=== PATIENT | male | born 1985 | race Two or more races ===

== ENCOUNTER 2018-03-04 16:16 | Emergency (ER) | payer BC ==
[~2018-03-04] VITALS: Ht 188 cm; Wt 71.7 kg
[2018-03-04 16:26] VITALS: BP 120/77
[2018-03-04] MEDS ORDERED: IBUPROFEN 800 MG TAB PO ONE (17:30)
== END 2018-03-04 17:42 | disposition home or self-care (01) ==
LOC: ER 16:20
DX: S90.121A Contusion of right lesser toe(s) without damage to nail, initial encounter (principal); W22.8XXA Striking against or struck by other objects, initial encounter; Y93.89 Activity, other specified; Y99.8 Other external cause status; Y92.89 Other specified places as the place of occurrence of the external cause
CPT/HCPCS: 73630